=== PATIENT | male | born 1980 | race Caucasian/White ===

== ENCOUNTER 2023-01-16 15:42 | Emergency (ER) | payer OTHER, BC ==
[~2023-01-16] VITALS: Ht 180 cm; Wt 65.0 kg
--- NOTE | 2023-01-16 16:11 | ED General ---
General Chief Complaint: General Problems/Pain Stated Complaint: WC,HEAT EXHAUSTION Source of Information: Patient Exam Limitations: No Limitations History of Present Illness Date Seen by Provider: Jan 16, 2023 Time Seen by Provider: 15:57 Initial Comments 42-year-old male who is otherwise healthy presents to the emergency department today after he believes he got overheated at work. 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 When he began to feel ill his safety physician took him outside and gave him salt tablets and electrolyte solution. He then had a sensation of tingling all over. This had subsided at present. He denies any current symptoms. All other systems reviewed and negative except documented per HPI. Voice recognition software was used to help create this chart Allergies and Home Medications Patient Home Medication List Home Medication List Reviewed: Yes Review of Systems Review of Systems Constitutional: see HPI Past [id number]-Codtve Hx Patient Social History Tobacco Use?: Yes Tobacco type used: Cigarettes Smoking Status: Current Everyday Smoker Use of E-Cig and/or Vaping dev: No Substance use?: No Alcohol Use?: Yes Alcohol Frequency: Couple times a week Pt feels they are or have been: No Physical Exam Vital Signs Capillary Refill : Height, Weight, BMI Height: '" Weight: lbs. oz. kg; BMI Method: General Appearance: No Apparent Distress HEENT: PERRL/EOMI, Normal ENT Inspection, Pharynx Normal Respiratory: Chest Non Tender, Lungs Clear, Normal Breath Sounds, No Accessory Muscle Use Cardiovascular: Regular Rate, Rhythm, No Murmur, Normal Peripheral Pulses Gastrointestinal: Normal Bowel Sounds, No Organomegaly, Non Tender, Soft Extremity: Normal Capillary Refill, Normal Inspection, Non Tender, No Calf Tenderness Neurologic/Psychiatric: Alert, Oriented x3, No Motor/Sensory Deficits Skin: Normal Color, Warm/Dry Progress/Results/Core Measures Suspected Sepsis SIRS Temperature: Pulse: Respiratory Rate: Blood Pressure / Mean: Results/Orders Vital Signs/I&O Capillary Refill : Departure Impression Primary Impression: Heat exhaustion Qualified Codes: T67.5XXA - Heat exhaustion, unspecified, initial encounter Disposition: HOME, SELF-CARE Condition: Stable Departure-Patient Inst. Referrals: OCTAVIA DICKSON MD (PCP) Primary Care Physician Patient Instructions: Heat Exhaustion and Heat Stroke (DC) Add. Discharge Instructions: Trying to take frequent breaks when having to work in the heat and hydrate regularly. Increase your fluids outside of work times as well. Follow-up with your primary doctor for any nonemergent needs. Return to the emergency department for any severe concerns. All discharge instructions reviewed with patient and/or family. Voiced understanding. Work/School Note: Work Release Form Date Seen in the Emergency Department: Jan 16, 2023 Return to Work: Jan 17, 2023 Restrictions: No Restrictions MANUEL LANG DO Jan 16, 2023 16:10
[2023-01-16 16:13] VITALS: BP 108/77
== END 2023-01-16 16:14 | disposition home or self-care (01) ==
LOC: EDUNIT# 15:42 → ER FS 15:47
DX: T67.5XXA Heat exhaustion, unspecified, initial encounter (principal); F17.210 Nicotine dependence, cigarettes, uncomplicated; X30.XXXA Exposure to excessive natural heat, initial encounter; Y92.59 Other trade areas as the place of occurrence of the external cause; Y99.0 Civilian activity done for income or pay
CPT/HCPCS: 99283